=== PATIENT | female | born 1955 | race Caucasian/White ===

== ENCOUNTER 2016-08-10 11:44 | Inpatient (IN) | payer OTHER ==
--- NOTE | ~2016-08-10 | DS ---
Discharge Summary [facility] [address] [place]. [address] NAME: JUAN DUMONT : 53 STATUS : DIS IN PAT#: [id number] AGE: 61 ADM/REG DATE : 08/10/16 MR#: [id number] REPORT SERV DATE: 08/12/16 DICTATED BY: VARSHA DIOP DATE: 08/12/16 REPORT STATUS : Draft TRANSCRIBED BY: MODL DATE: 08/12/16 ADMISSION DATE: 08/10/2016 DISCHARGE DATE: 08/12/2016 DISCHARGE DIAGNOSES: 1. Acute on chronic diastolic dysfunction. 2. Acute hypoxic respiratory failure, improved back to room air with adequate oxygenation status. 3. Atrial fibrillation. 4. Diabetes mellitus. 5. History of recent pneumonia back in 05/2016. No evidence of pneumonia at this point. HISTORY OF PRESENT ILLNESS: This is an obese 61-year-old female patient, who had a recent hospitalization with pneumonia, who came to the hospital with shortness of breath. Please see dictated H and P. HOSPITAL COURSE: She was admitted to the hospital with heart failure. Had evaluation with echocardiogram which showed probably a normal left ventricular ejection fraction but showed indeterminate diastolic dysfunction without significant valvular heart disease. More likely, she is suffering from diastolic dysfunction. She was treated with IV diuretics and had great improvement. Now, she is off the oxygen, she can ambulate without any problem, dyspnea, other symptoms, or hypoxia without the oxygen supplement. Therefore, the patient will be discharged to home, and we are going to increase her Lasix to 60 mg once a day from 40 mg. I explained to her probably she will need a sleep study as an outpatient and also she needs to stop smoking seriously. She voiced understanding about this recommendation and education on cessation. I explained to her to increase her furosemide to 60 mg once a day. She maximized inpatient benefit, stabilized, had significant improvement, and will be discharged to home. DISCHARGE MEDICATIONS: Coreg 3.125 mg twice a day, Dilantin 100 mg once in the morning time and at bedtime, Glucophage 500 mg once a day, Keppra 250 mg in the morning time and 500 mg at nighttime, Neurontin 100 mg three times a day, potassium 20 mg once a day, Pravachol 20 mg once at bedtime, Xarelto 20 mg once at bedtime, and again furosemide was increased to 60 mg once a day. DISPOSITION: The patient is discharged to home in stable condition and needs to follow up with primary care physician. EKL/MODL Varsha Forrest Discharge Summary [address] [place]. [address] NAME: JUAN DUMONT : 53 STATUS : DIS IN PAT#: [id number] AGE: 61 ADM/REG DATE : 08/10/16 MR#: [id number] REPORT SERV DATE: 08/12/16 DICTATED BY: VARSHA DIOP DATE: 08/12/16 REPORT STATUS : Draft TRANSCRIBED BY: MIGUEL DATE: 08/12/16 Alec Diop / [id number] CC: Alec Gutiérrez
--- NOTE | ~2016-08-10 | HP ---
History And Physical [address] [place]. [address] NAME: JUAN DUMONT : 53 STATUS : ADM IN PAT#: [id number] AGE: 61 ADM/REG DATE : 08/10/16 MR#: [id number] REPORT SERV DATE: 08/10/16 DICTATED BY: VARSHA DIOP DATE: 08/10/16 REPORT STATUS : Draft TRANSCRIBED BY: MODL DATE: 08/10/16 DATE OF ADMISSION: 08/10/2016 CHIEF COMPLAINT: She complained of being dizzy and short of breath for two weeks. HISTORY OF PRESENT ILLNESS: This is a 61-year-old current smoker who was treated in the hospital with pneumonia 2 months ago, came back to the hospital today with two weeks of dizziness and short of breath. She said she was feeling very well when she was discharged back in May 2016 and she was doing well but about two weeks ago, she started feeling very labored breathing and whenever she moves around, she felt dizzy and it has been progressively worse that is why she tried to come to the hospital today. She missed appointment with a psychiatric arnp for the hospital followup because her car was in the shop for repair, so she made another appointment coming next month. She has no fever, no chills. She has some cough but whitish sputum coming out. There is no hemoptysis. No dysuria. No bleedings anywhere. She did not have any chest pain, but she felt some left arm discomfort about two weeks. She has no history of heart failure. She is not sure about her sleep apnea diagnosis. There was no syncopal episode. No palpitation. REVIEW OF SYSTEMS: All systems are reviewed and negative. PAST MEDICAL HISTORY: 1. Atrial fibrillation. 2. Diabetes. 3. Chronic obstructive pulmonary disease. 4. History of pneumonia back in May 2016. 5. Seizure disorder. 6. Tobacco abuse. PAST SURGICAL HISTORY: 1. Cholecystectomy. 2. Left hip surgery. ALLERGIES: NO KNOWN DRUG ALLERGIES. SOCIAL HISTORY: She lives with family and has children. She smokes cigarettes but she cut down to 1 cigarette per week last week. History And Physical [address] [address] NAME: JUAN DUMONT : 53 STATUS : ADM IN PAT#: [id number] AGE: 61 ADM/REG DATE : 08/10/16 MR#: [id number] REPORT SERV DATE: 08/10/16 DICTATED BY: VARSHA DIOP DATE: 08/10/16 REPORT STATUS : Draft TRANSCRIBED BY: MIGUEL DATE: 08/10/16 MEDICATIONS AT HOME: 1. Albuterol as needed. 2. Coreg 3.125 mg twice a day. 3. Lasix 40 mg once a day. 4. Neurontin 100 mg three times a day. 5. Keppra 750 mg once a day and 1500 mg once at nighttime. 6. Metformin 500 mg once a day. 7. Dilantin 200 mg once a day and 100 mg at night. 8. Potassium chloride 20 mEq once a day. 9. Pravachol 20 mg once a day. 10.Xarelto 20 mg once at night. 11.Aptiom 200 mg once at bedtime, that is her new seizure medication. FAMILY HISTORY: Father of bladder cancer. PHYSICAL EXAMINATION: VITAL SIGNS: Blood pressure 118/38, pulse was 103, temperature is 98.7, respirations 23, and saturation was 86% on room air. GENERAL APPEARANCE: She is alert and awake. She is sitting up on the stretcher cot in the hospital bed here and has a mild respiratory distress. HEENT: Pupils are equal and round and reactive to light. EOMs intact. Conjunctivae not anemic. Has a mustache. NECK: No carotid bruits audible. CHEST: Has both base crackles and scattered wheezing on both chest area, especially the crackles are more audible on both the bases. CARDIOVASCULAR: The heart sound is very hard to hear because of the breathing sound. It is irregular. ABDOMEN: Bowel sounds present. Soft. EXTREMITIES: There is no pedal edema. The patient's body habitus is obese. LABORATORY DATA: Showed sodium 132, potassium 3.5, BUN 9, creatinine 0.44, glucose 92, WBC was 6.8, hemoglobin 13.0, hematocrit 40.0, and platelets is 157. ABG showed pH 7.4, pCO2 was 43, and PaO2 of 55. X-ray showed bilateral pulmonary congestion. ASSESSMENT AND PLAN: 1. Acute hypoxic respiratory failure. Etiology is many possibility currently at this point, I doubt infectious etiology. 2. Chronic atrial fibrillation with rate control. 3. Chronic Xarelto use. 4. Chronic obstructive pulmonary disease exacerbation. 5. Seizure disorder. 6. Current tobacco abuse. The patient will be admitted to the hospital on telemetry bed. We will start IV diuretics History And Physical [address] [address] NAME: JUAN DUMONT : 53 STATUS : ADM IN PAT#: [id number] AGE: 61 ADM/REG DATE : 08/10/16 MR#: [id number] REPORT SERV DATE: 08/10/16 DICTATED BY: VARSHA DIOP DATE: 08/10/16 REPORT STATUS : Draft TRANSCRIBED BY: MODL DATE: 08/10/16 and we will obtain the echocardiogram. Maximizing bronchodilator with inhaled steroid use. We will also check the Dilantin level and also oxygen supplement. The patient's current plan of care was discussed with the patient and she voiced understanding. EKL/MODL Varsha Diop M.D. / [id number] CC: CLEMENTINA MCCOLLUM
[2016-08-10 11:44] LABS: BASOPHILS 0.4 %; BASOPHILS ABSOLUTE 0.03 10/3/uL (0.0-0.16); EOSINOPHILS 0 %; ER CBC TAT 0 Hrs 08 Mins; IMMATURE GRANULOCYTES 0.1 %; IMMATURE GRANULOCYTES ABSOLUTE 0.01 10/3/uL (0.0-0.11); LYMPHOCYTES 28.9 %; LYMPHOCYTES ABSOLUTE 1.97 10/3/uL (0.67-4.30); MANUAL DIFF NO %; MEAN CORPUS HGB CONC 32.5 g/dL (32.0-36.0); MEAN CORPUSCULAR HEMOGLOB 28.3 pg (26.0-34.0); MEAN CORPUSCULAR VOLUME 87.1 fL (80-100); MEAN PLATELET VOLUME 12.1 fL (9.2-13.0); MONOCYTES 12.2 %; MONOCYTES ABSOLUTE 0.83 10/3/uL (0.21-1.20); NEUTROPHILS 58.4 %; NEUTROPHILS ABSOLUTE 3.98 10/3/uL (2.02-8.40); PLATELET COUNT 157 10/3/uL (150-400); RBC DISTRIBUTION WIDTH 13.9 % (12.0-16.0); RED CELL COUNT 4.59 10/6/uL (4.0-5.6); WHITE BLOOD CELLS 6.8 10/3/uL (4.5-10.5)
[~2016-08-10 11:44] MED LIST: ALBUTEROL5 INH; APTIOM; APTIOM PO; AUG875 PO; COREG3 PO; D100 PO; FORTAMET500 MG PO; KEPPRA750 MG PO; KLOR-CON M2020 MEQ PO; L40 PO; NEUR100 PO; PRAVAC PO; XARELTO20 MG PO
[2016-08-10 11:59] LABS: BUN (BLOOD UREA NITROGEN) 9 MG/DL (6-23); CALCIUM, SERUM 8.3 MG/DL (8.5-10.4); CHLORIDE, SERUM 92 MMOL/L (96-112); CO2 (CARBON DIOXIDE) 27 MMOL/L (24-34); CREATININE 0.44 MG/DL (0.55-1.02); GFR AFRICAN AMERICAN 125 ML/MIN (>=60); GFR NON AFRICAN AMERICAN 108 ML/MIN (>=60); POTASSIUM, SERUM 3.5 MMOL/L (3.5-5.3); SGOT(AST) 25 U/L (5-40); SGPT(ALT) 22 U/L (5-65); TOTAL BILIRUBIN 0.5 MG/DL (0-1.2); TOTAL PROTEIN 7.4 G/DL (6.0-8.5)
[2016-08-10 12:00] LABS: A/G RATIO 0.8 (0.7-1.9); ALBUMIN 3.2 G/DL (3.5-5.0); ALKALINE PHOSPHATASE 146 U/L (45-117); GLOBULIN 4.2 G/DL (2.5-4.1); GLUCOSE, SERUM 92 MG/DL (60-99); SODIUM, SERUM 132 MMOL/L (135-148)
[2016-08-10] MEDS ORDERED: KEPPRA750 MG PO (12:53)
[2016-08-10] MEDS ORDERED: D100 PO (12:54)
[2016-08-10] MEDS ORDERED: PROVHFA INH (12:55)
[2016-08-10 13:09] LABS: ALLENS TEST Pos; CARBOXYHEMOGLOBIN 1.4 % (0-3); HCO3 (ACTUAL BICARBONATE) 26.1 MEQ/L (23-27); HEMOBLOGIN CONTENT 13.3 G/DL (12-16); INSTRUMENT SERIAL # 8087; METHEMOGLOBIN 0.4 % (0-3); O2 CONTENT 16.1 VOL% (18-24); PCO2 (CO2 TENSION) 43 MMHG (35-45); PO2 (O2 TENSION) 55 MMHG (79-93); SAMPLE Arterial
[2016-08-10 18:27] LABS: DILANTIN (PHENYTOIN) 3.4 MCG/ML (10.0-20.0); TROPONIN I <0.02 NG/ML (<0.05)
[2016-08-10 20:00] LABS: PROCALCITONIN <0.05 ng/mL (<0.5)
[2016-08-11 06:48] LABS: BUN (BLOOD UREA NITROGEN) 10 MG/DL (6-23); CALCIUM, SERUM 8.5 MG/DL (8.5-10.4); CHLORIDE, SERUM 99 MMOL/L (96-112); CO2 (CARBON DIOXIDE) 31 MMOL/L (24-34); CREATININE 0.61 MG/DL (0.55-1.02); GFR AFRICAN AMERICAN 113 ML/MIN (>=60); GFR NON AFRICAN AMERICAN 97 ML/MIN (>=60); POTASSIUM, SERUM 3.1 MMOL/L (3.5-5.3)
[2016-08-11 06:50] LABS: GLUCOSE, SERUM 231 MG/DL (60-99); SODIUM, SERUM 141 MMOL/L (135-148)
[2016-08-11 06:54] LABS: BASOPHILS 1.4 %; BASOPHILS ABSOLUTE 0.07 10/3/uL (0.0-0.16); EOSINOPHILS 0 %; HEMATOCRIT 40.2 % (36.0-48.0); HEMOGLOBIN 13.1 g/dL (12.0-16.0); IMMATURE GRANULOCYTES 0.2 %; IMMATURE GRANULOCYTES ABSOLUTE 0.01 10/3/uL (0.0-0.11); LYMPHOCYTES 36.8 %; LYMPHOCYTES ABSOLUTE 1.82 10/3/uL (0.67-4.30); MEAN CORPUS HGB CONC 32.6 g/dL (32.0-36.0); MEAN CORPUSCULAR VOLUME 89.1 fL (80-100); MEAN PLATELET VOLUME 11.4 fL (9.2-13.0); MONOCYTES 12.8 %; MONOCYTES ABSOLUTE 0.63 10/3/uL (0.21-1.20); NEUTROPHILS 48.8 %; NEUTROPHILS ABSOLUTE 2.41 10/3/uL (2.02-8.40); PLATELET COUNT 147 10/3/uL (150-400); RBC DISTRIBUTION WIDTH 13.7 % (12.0-16.0); RED CELL COUNT 4.51 10/6/uL (4.0-5.6); WHITE BLOOD CELLS 4.9 10/3/uL (4.5-10.5)
[2016-08-11 07:00] LABS: MANUAL DIFF NO %
[2016-08-12 04:53] LABS: CALCIUM, SERUM 8.7 MG/DL (8.5-10.4); CHLORIDE, SERUM 102 MMOL/L (96-112); CO2 (CARBON DIOXIDE) 33 MMOL/L (24-34); GFR AFRICAN AMERICAN 129 ML/MIN (>=60); GFR NON AFRICAN AMERICAN 112 ML/MIN (>=60); SODIUM, SERUM 142 MMOL/L (135-148)
[2016-08-12 04:54] LABS: BUN (BLOOD UREA NITROGEN) 15 MG/DL (6-23); GLUCOSE, SERUM 96 MG/DL (60-99); POTASSIUM, SERUM 3.9 MMOL/L (3.5-5.3)
== END 2016-08-12 19:23 | disposition home or self-care (01) | DRG 291 ==
LOC: ER 11:44 → 7NO 15:25
PROVIDERS: Emergency Medicine; Internal Medicine
DX: I50.33 Acute on chronic diastolic (congestive) heart failure (principal); J96.01 Acute respiratory failure with hypoxia; I48.2 Chronic atrial fibrillation; J44.9 Chronic obstructive pulmonary disease, unspecified; E11.9 Type 2 diabetes mellitus without complications; G40.909 Epilepsy, unspecified, not intractable, without status epilepticus; Z87.01 Personal history of pneumonia (recurrent); F17.210 Nicotine dependence, cigarettes, uncomplicated; Z90.49 Acquired absence of other specified parts of digestive tract; Z98.890 Other specified postprocedural states; Z79.899 Other long term (current) drug therapy; Z85.51 Personal history of malignant neoplasm of bladder; Z79.01 Long term (current) use of anticoagulants
CPT/HCPCS: 36600; 71010; 71020; 80048; 80053; 80185; 82805; 82962; 83880; 84145; 84484; 85025; 87040; 87070; 87205; 93005; 93306; 94640; 96374; 96375; 99291; A9270-GY; J2930

== ENCOUNTER 2016-10-19 11:24 | Inpatient (IN) | payer OTHER ==
--- NOTE | ~2016-10-19 | DS ---
Discharge Summary [place] [address] [facility] [place]. [address] NAME: JUAN DUMONT : 53 STATUS : ADM IN PAT#: [id number] AGE: 61 ADM/REG DATE : 10/19/16 MR#: [id number] REPORT SERV DATE: 10/23/16 DICTATED BY: MAVIS OSCAR DATE: 10/23/16 REPORT STATUS : Draft TRANSCRIBED BY: MODL DATE: 10/23/16 ADMISSION DATE: 10/19/2016 DISCHARGE DATE: ADDENDUM: The patient's O2 saturation at rest 91% and with walking on room air, the patient's O2 saturation was 87%, so she will go home with supplemental oxygen 2 L nasal cannula. DICTATED BY: Alec Hickman/MIGUEL Mavis Oscar M.D. / [id number] CC: Alec Hickman
--- NOTE | ~2016-10-19 | DS ---
Discharge Summary [facility] [address] [place]. [address] NAME: JUAN DUMONT : 53 STATUS : DIS IN PAT#: [id number] AGE: 61 ADM/REG DATE : 10/19/16 MR#: [id number] REPORT SERV DATE: 10/23/16 DICTATED BY: MAVIS OSCAR DATE: 10/23/16 REPORT STATUS : Draft TRANSCRIBED BY: MODL DATE: 10/23/16 ADMISSION DATE: 10/19/2016 DISCHARGE DATE: 10/23/2016 DISCHARGE DIAGNOSES: 1. Right upper lobe community-acquired pneumonia. 2. Chronic obstructive pulmonary disease exacerbation in an active smoker. 3. Atrial fibrillation with rapid ventricular response. 4. History of chronic diastolic congestive heart failure. 5. Seizure disorder. 6. Diabetes mellitus type 2 with A1c of 5.6%. 7. Hyponatremia, mild and improved. HISTORY: The patient presented to the emergency room at [facility] with complaints of fever, chills, some cough. She was found to have a right upper lobe infiltrate and was referred to our team for inpatient care. Chest x-ray in the emergency room revealed right upper lobe infiltrate. Procalcitonin was elevated at 1.86. Her white count was elevated at 17.7. She was admitted to the hospital. Blood cultures x2 with no growth. Sputum grew out normal kelin. She had a urine culture with greater than 100,000 mixed gram positive cocci and diphtheroid. She had some diarrhea on 10/19/2016 that grew out normal kelin. No shiga toxin, 0 to 5 white cells, negative C. diff. The patient's diarrhea significantly improved. Treatment in the hospital included Rocephin 2 g every 24 hours plus azithromycin and bronchodilator protocol. She had the Cardizem protocol in place for rapid ventricular response. Her rapid ventricular response has improved. She had a recent echocardiogram on 08/11/2016 showing left atrial enlargement of 5 cm, left ventricular ejection fraction of 55%, indeterminate left ventricular diastolic function, mildly calcified aortic valve without significant aortic valve stenosis. Otherwise, unremarkable findings. She is ambulatory. She is feeling dramatically better. Her appetite is good. She has no chest pain. Her TSH in May of this year was normal at 0.574. DISCHARGE MEDICATIONS: Will include Wellbutrin SR 150 mg daily, Coreg 3.125 mg b.i.d., Ceftin 500 mg b.i.d. for two more days, gabapentin 100 mg at bedtime and 200 mg in the morning, Keppra 750 mg in the morning and 1500 mg at bedtime, lisinopril 2.5 mg b.i.d., phenytoin 100 mg twice a day (she states her neurologist is slowly weaning her off), Pravachol 20 mg at bedtime, Xarelto 20 mg at supper, metformin 500 mg daily, Tylenol 650 q.6 hours p.r.n. pain or fever, albuterol HFA two puffs q.4 hours p.r.n. shortness of breath, Advair Diskus 250/50 a puff twice a day, Lasix 40 mg in the morning and 20 in the evening, KCl 20 mEq daily, Aptiom 200 mg daily, Centrum multivitamin once a day I spent 41 minutes today with the patient and with the nurse and with discharge planning. Discharge Summary [address] [address] NAME: JUAN DUMONT : 53 STATUS : DIS IN PAT#: [id number] AGE: 61 ADM/REG DATE : 10/19/16 MR#: [id number] REPORT SERV DATE: 10/23/16 DICTATED BY: MAVIS OSCAR DATE: 10/23/16 REPORT STATUS : Draft TRANSCRIBED BY: MIGUEL DATE: 10/23/16 DICTATED BY: Mavis Oscar M.D. RSG/MIGUEL Mavis Oscar M.D. / [id number] CC: Alec Hickman III, M.D.
--- NOTE | ~2016-10-19 | HP ---
History And Physical [place] [address] [place]. [address] NAME: JUAN DUMONT : 53 STATUS : ADM IN [facility]#: [id number] AGE: 61 ADM/REG DATE : 10/19/16 MR#: [id number] REPORT SERV DATE: 10/19/16 DICTATED BY: MAVIS LIN DATE: 10/19/16 REPORT STATUS : Draft TRANSCRIBED BY: MODL DATE: 10/19/16 DATE OF ADMISSION: 10/19/2016 HISTORY OF PRESENT ILLNESS: This is a 61-year-old female, who comes in for shortness of breath. The patient is a 61-year-old female, who has a history of COPD, not on home O2, diastolic congestive heart failure, atrial fibrillation, seizure disorder, yet continues to smoke two packs per day. The patient started having symptoms Sunday night when she woke up, feeling chills, undocumented fever, some sweats, and generalized aches and pains. The next day, she started having some diarrhea several times at night, but not during the day. She also has this chronic cough productive of yellowish phlegm, so she did not think that requires any change. The patient continued having this, it got worse. Finally today, she started having some vomiting, she could not take her medications, decided to come to the emergency room. She did admit of having some right chest pains increased on coughing. The patient then got an x-ray which shows the right upper lung pneumonia and we are now called to admit this patient. She denies any change in mental status, loss of consciousness, confusion. No rashes. She has generalized aches and pains, not particularly any kind of a joint pain. She denies any urinary symptoms. No hematochezia, hematemesis, hemoptysis. REVIEW OF SYSTEMS: The rest of the 14-point review of system is negative except as above. PAST MEDICAL HISTORY: Includes atrial fibrillation, diabetes, COPD, history of pneumonia, seizure disorder, cholecystectomy, left hip surgery. ALLERGIES: SHE HAS NO KNOWN DRUG ALLERGIES. MEDICATIONS: Include albuterol, Wellbutrin, Coreg, Advair, furosemide, Neurontin, Keppra, lisinopril, metformin, multivitamin, Dilantin, potassium, Pravachol, Xarelto, Aptiom. FAMILY HISTORY: Father of bladder cancer. SOCIAL HISTORY: The patient smokes two packs a day for several years. Lives with her family. No alcohol or recreational drug use. PHYSICAL EXAMINATION: GENERAL: The patient is alert and oriented x3, in mild cardiorespiratory distress. VITAL SIGNS: Include a temperature of 101.5, blood pressure of 101/55, pulse rate of 115, saturations 91% on room air, respiration of 28. NECK: She has supple neck. No JVD or carotid bruits. No lymphadenopathy. [place] conjunctivae. Anicteric sclerae. No pharyngeal erythema. LUNGS: She has wheezes bilaterally. Rhonchi and egophony on the right upper lung area. HEART: There is irregular rate and rhythm. Tachycardic. No murmurs appreciated. Positive bowel sounds. Soft, nontender. No masses. Fair pulses. No edema. NEURO: Nonlocalizing. LABORATORY DATA: Reveals a sodium of 128, potassium of 3.4, glucose of 120, AST of 41, History And Physical [address] [address] NAME: JUAN DUMONT : 53 STATUS : ADM IN [facility]#: [id number] AGE: 61 ADM/REG DATE : 10/19/16 MR#: [id number] REPORT SERV DATE: 10/19/16 DICTATED BY: MAVIS LIN DATE: 10/19/16 REPORT STATUS : Draft TRANSCRIBED BY: MODSarah DATE: 10/19/16 alkaline phosphatase of 183, total bilirubin of 1.5. White count of 17.7. The rest of the blood work are within acceptable limits. Flu test is negative. Urinalysis is pending. EKG shows an atrial fibrillation with rapid ventricular response at 103, normal axis. There is an incomplete right bundle branch block. ASSESSMENT: 1. Sepsis. 2. Right pneumonia. 3. Chronic obstructive pulmonary disease exacerbation. 4. Rapid atrial fibrillation. 5. Diabetes. 6. Tobacco abuse. 7. History of seizure disorder. 8. Hypokalemia. 9. Hyponatremia. PLAN: The patient will be admitted and placed on sepsis protocol. Continue the antibiotics that was started in the emergency room while we check the cultures. Placed on oxygen and bronchodilators. However, I will hold off steroids for now. Continue the beta filomena and placed on Cardizem drip if needed to control her rapid atrial fibrillation. Continue the anticoagulation. Continue diabetic and seizure medications. Correct the electrolytes. I will hold the diuretics for now. I have counseled her on stopping smoking and we will place her on a nicotine patch. This has been explained to the patient and she agreed and understood the plan. RENETTA/MIGUEL Mavis Lin M.D. / [id number] CC: Alec Edwards WILLIAM ANDREW
[~2016-10-19 11:24] MED LIST changes: +PROVHFA INH
[2016-10-19 13:13] LABS: BASOPHILS 0.1 %; BASOPHILS ABSOLUTE 0.02 10/3/uL (0.0-0.16); EOSINOPHILS 0 %; IMMATURE GRANULOCYTES 0.4 %; IMMATURE GRANULOCYTES ABSOLUTE 0.07 10/3/uL (0.0-0.11); LYMPHOCYTES 5.2 %; LYMPHOCYTES ABSOLUTE 0.93 10/3/uL (0.67-4.30); MEAN CORPUS HGB CONC 34.1 g/dL (32.0-36.0); MEAN CORPUSCULAR HEMOGLOB 29.3 pg (26.0-34.0); MEAN PLATELET VOLUME 11.8 fL (9.2-13.0); MONOCYTES 7.1 %; MONOCYTES ABSOLUTE 1.26 10/3/uL (0.21-1.20); NEUTROPHILS 87.2 %; NEUTROPHILS ABSOLUTE 15.46 10/3/uL (2.02-8.40); RBC DISTRIBUTION WIDTH 13.4 % (12.0-16.0); RED CELL COUNT 4.09 10/6/uL (4.0-5.6)
[2016-10-19 13:17] LABS: ER CBC TAT 0 Hrs 12 Mins; HEMATOCRIT 35.2 % (36.0-48.0); MANUAL DIFF NO %; MEAN CORPUSCULAR VOLUME 86.1 fL (80-100); PLATELET COUNT 195 10/3/uL (150-400); WHITE BLOOD CELLS 17.7 10/3/uL (4.5-10.5)
[2016-10-19 13:23] LABS: INTERNATIONAL NORMAL RATI 1.5 UNITS (-)
[2016-10-19 13:24] LABS: PARTIAL THROMBO TIME 37.7 SEC (22.5-37.2)
[2016-10-19 13:28] LABS: LACTATE 1.4 MMOL/L (0.3-2.4)
[2016-10-19 13:30] LABS: CALCIUM, SERUM 8.8 MG/DL (8.5-10.4); CHLORIDE, SERUM 93 MMOL/L (96-112); CREATININE 0.53 MG/DL (0.55-1.02); GFR AFRICAN AMERICAN 118 ML/MIN (>=60); GFR NON AFRICAN AMERICAN 102 ML/MIN (>=60); POTASSIUM, SERUM 3.4 MMOL/L (3.5-5.3); SGOT(AST) 41 U/L (5-40); SGPT(ALT) 29 U/L (5-65)
[2016-10-19 13:32] LABS: A/G RATIO 0.6 (0.7-1.9); ALBUMIN 2.5 G/DL (3.5-5.0); ALKALINE PHOSPHATASE 183 U/L (45-117); BUN (BLOOD UREA NITROGEN) 8 MG/DL (6-23); CO2 (CARBON DIOXIDE) 28 MMOL/L (24-34); GLOBULIN 4.5 G/DL (2.5-4.1); GLUCOSE, SERUM 120 MG/DL (60-99); SODIUM, SERUM 128 MMOL/L (135-148); TOTAL BILIRUBIN 1.5 MG/DL (0-1.2)
[2016-10-19 13:55] LABS: PROCALCITONIN 1.86 ng/mL (<0.5)
[2016-10-19 14:31] LABS: INFLUENZA A SCREEN NEGATIVE (NEGATIVE); INFLUENZA B SCREEN NEGATIVE (NEGATIVE)
[2016-10-19] MEDS ORDERED: ADVAIR250 INH (14:44)
[2016-10-19] MEDS ORDERED: COREG3 PO (14:45)
[2016-10-19] MEDS ORDERED: WELLSR150 PO (14:45)
[2016-10-19] MEDS ORDERED: L20 PO (14:46)
[2016-10-19] MEDS ORDERED: L40 PO (14:47)
[2016-10-19] MEDS ORDERED: KLOR-CON M2020 MEQ PO (14:47)
[2016-10-19] MEDS ORDERED: PRIN2.5 PO (14:48)
[2016-10-19] MEDS ORDERED: FORTAMET500 MG PO (14:50)
[2016-10-19] MEDS ORDERED: D100 PO (14:52)
[2016-10-19] MEDS ORDERED: PRAVAC PO (14:53)
[2016-10-19] MEDS ORDERED: PROVHFA INH (15:14)
[2016-10-19] MEDS ORDERED: XARELTO20 MG PO (15:15)
[2016-10-19] MEDS ORDERED: KEPPRA750 MG PO ×2 (15:16)
[2016-10-19] MEDS ORDERED: APTIOM PO (15:18)
[2016-10-19] MEDS ORDERED: NEUR100 PO ×2 (15:18→15:19)
[2016-10-19] MEDS ORDERED: CENTRUM PO (15:28)
[2016-10-19 20:44] LABS: ASCORBIC ACID (UR NOT ORDER) 40 (NEG); BILIRUBIN, URINE NEGATIVE (NEG); ER URINALYSIS TAT 0 Hrs 22 Mins; KETONE, URINE 20 MG/DL (NEG); LEUKOCYTE ESTERASE(NOT OR SMALL (NEG); NITRITE (URINE) NEG (NEG); WBC (NOT ORDERED) (RFLEX) 6 (0-5)
[2016-10-20 06:50] LABS: BASOPHILS 0.1 %; BASOPHILS ABSOLUTE 0.02 10/3/uL (0.0-0.16); EOSINOPHILS 0.1 %; EOSINOPHILS ABSOLUTE 0.01 10/3/uL (0.0-0.53); HEMATOCRIT 35.8 % (36.0-48.0); IMMATURE GRANULOCYTES 0.4 %; IMMATURE GRANULOCYTES ABSOLUTE 0.06 10/3/uL (0.0-0.11); LYMPHOCYTES 7.4 %; LYMPHOCYTES ABSOLUTE 1.07 10/3/uL (0.67-4.30); MEAN CORPUS HGB CONC 33.5 g/dL (32.0-36.0); MEAN CORPUSCULAR HEMOGLOB 29.3 pg (26.0-34.0); MEAN CORPUSCULAR VOLUME 87.3 fL (80-100); MEAN PLATELET VOLUME 11.5 fL (9.2-13.0); MONOCYTES 9.1 %; MONOCYTES ABSOLUTE 1.32 10/3/uL (0.21-1.20); NEUTROPHILS 82.9 %; NEUTROPHILS ABSOLUTE 12.07 10/3/uL (2.02-8.40); PLATELET COUNT 170 10/3/uL (150-400); RBC DISTRIBUTION WIDTH 13.6 % (12.0-16.0); WHITE BLOOD CELLS 14.6 10/3/uL (4.5-10.5)
[2016-10-20 06:51] LABS: MANUAL DIFF NO %
[2016-10-20 07:02] LABS: BUN (BLOOD UREA NITROGEN) 11 MG/DL (6-23); CALCIUM, SERUM 8.3 MG/DL (8.5-10.4); CHLORIDE, SERUM 94 MMOL/L (96-112); CO2 (CARBON DIOXIDE) 25 MMOL/L (24-34); CREATININE 0.38 MG/DL (0.55-1.02); GFR AFRICAN AMERICAN 132 ML/MIN (>=60); GFR NON AFRICAN AMERICAN 114 ML/MIN (>=60); GLUCOSE, SERUM 94 MG/DL (60-99); POTASSIUM, SERUM 3.4 MMOL/L (3.5-5.3); SODIUM, SERUM 129 MMOL/L (135-148)
[2016-10-21 05:41] LABS: BASOPHILS 0.1 %; BASOPHILS ABSOLUTE 0.01 10/3/uL (0.0-0.16); EOSINOPHILS 0.3 %; EOSINOPHILS ABSOLUTE 0.03 10/3/uL (0.0-0.53); HEMOGLOBIN 10.5 g/dL (12.0-16.0); IMMATURE GRANULOCYTES 0.5 %; IMMATURE GRANULOCYTES ABSOLUTE 0.06 10/3/uL (0.0-0.11); LYMPHOCYTES 10.1 %; LYMPHOCYTES ABSOLUTE 1.11 10/3/uL (0.67-4.30); MEAN CORPUS HGB CONC 33.3 g/dL (32.0-36.0); MEAN CORPUSCULAR HEMOGLOB 28.8 pg (26.0-34.0); MEAN CORPUSCULAR VOLUME 86.5 fL (80-100); MEAN PLATELET VOLUME 11.1 fL (9.2-13.0); MONOCYTES 7.8 %; MONOCYTES ABSOLUTE 0.86 10/3/uL (0.21-1.20); NEUTROPHILS 81.2 %; NEUTROPHILS ABSOLUTE 8.97 10/3/uL (2.02-8.40); PLATELET COUNT 159 10/3/uL (150-400); RBC DISTRIBUTION WIDTH 13.5 % (12.0-16.0); RED CELL COUNT 3.64 10/6/uL (4.0-5.6)
[2016-10-21 05:44] LABS: HEMATOCRIT 31.5 % (36.0-48.0); MANUAL DIFF NO %
[2016-10-21 05:55] LABS: BUN (BLOOD UREA NITROGEN) 13 MG/DL (6-23); CALCIUM, SERUM 8.2 MG/DL (8.5-10.4); CHLORIDE, SERUM 94 MMOL/L (96-112); CO2 (CARBON DIOXIDE) 27 MMOL/L (24-34); CREATININE 0.33 MG/DL (0.55-1.02); GFR AFRICAN AMERICAN 138 ML/MIN (>=60); GFR NON AFRICAN AMERICAN 119 ML/MIN (>=60); GLUCOSE, SERUM 99 MG/DL (60-99); POTASSIUM, SERUM 3.7 MMOL/L (3.5-5.3); SODIUM, SERUM 126 MMOL/L (135-148)
[2016-10-22 08:52] LABS: BASOPHILS 0.2 %; BASOPHILS ABSOLUTE 0.02 10/3/uL (0.0-0.16); EOSINOPHILS 1.4 %; EOSINOPHILS ABSOLUTE 0.14 10/3/uL (0.0-0.53); HEMATOCRIT 31.6 % (36.0-48.0); HEMOGLOBIN 10.3 g/dL (12.0-16.0); IMMATURE GRANULOCYTES 0.9 %; IMMATURE GRANULOCYTES ABSOLUTE 0.09 10/3/uL (0.0-0.11); LYMPHOCYTES 11.7 %; LYMPHOCYTES ABSOLUTE 1.18 10/3/uL (0.67-4.30); MEAN CORPUS HGB CONC 32.6 g/dL (32.0-36.0); MEAN PLATELET VOLUME 11.7 fL (9.2-13.0); MONOCYTES ABSOLUTE 1.11 10/3/uL (0.21-1.20); NEUTROPHILS 74.8 %; NEUTROPHILS ABSOLUTE 7.55 10/3/uL (2.02-8.40); PLATELET COUNT 163 10/3/uL (150-400); RBC DISTRIBUTION WIDTH 13.7 % (12.0-16.0); RED CELL COUNT 3.55 10/6/uL (4.0-5.6); WHITE BLOOD CELLS 10.1 10/3/uL (4.5-10.5)
[2016-10-22 08:55] LABS: MANUAL DIFF NO %
[2016-10-22 09:04] LABS: BUN (BLOOD UREA NITROGEN) 9 MG/DL (6-23); CALCIUM, SERUM 8.7 MG/DL (8.5-10.4); CHLORIDE, SERUM 100 MMOL/L (96-112); CO2 (CARBON DIOXIDE) 29 MMOL/L (24-34); CREATININE 0.26 MG/DL (0.55-1.02); GFR AFRICAN AMERICAN 149 ML/MIN (>=60); GFR NON AFRICAN AMERICAN 129 ML/MIN (>=60); GLUCOSE, SERUM 95 MG/DL (60-99); POTASSIUM, SERUM 4.8 MMOL/L (3.5-5.3); SODIUM, SERUM 133 MMOL/L (135-148)
[2016-10-23 05:56] LABS: BUN (BLOOD UREA NITROGEN) 7 MG/DL (6-23); CALCIUM, SERUM 8.8 MG/DL (8.5-10.4); CHLORIDE, SERUM 102 MMOL/L (96-112); CO2 (CARBON DIOXIDE) 25 MMOL/L (24-34); CREATININE 0.29 MG/DL (0.55-1.02); GFR AFRICAN AMERICAN 144 ML/MIN (>=60); GFR NON AFRICAN AMERICAN 124 ML/MIN (>=60); GLUCOSE, SERUM 98 MG/DL (60-99); POTASSIUM, SERUM 4.3 MMOL/L (3.5-5.3); SODIUM, SERUM 134 MMOL/L (135-148)
[2016-10-23] MEDS ORDERED: CEFT5 PO (17:40)
[2016-10-23] MEDS ORDERED: HABIT21 TOP (17:57)
[2016-10-23] MEDS ORDERED: T PO (18:03)
== END 2016-10-23 18:45 | disposition home or self-care (01) | DRG 871 ==
LOC: ER 11:24 → 2SO 15:46
PROVIDERS: Emergency Medicine; Internal Medicine
DX: A41.9 Sepsis, unspecified organism (principal); J18.9 Pneumonia, unspecified organism; I50.32 Chronic diastolic (congestive) heart failure; J44.1 Chronic obstructive pulmonary disease with (acute) exacerbation; I48.91 Unspecified atrial fibrillation; G40.909 Epilepsy, unspecified, not intractable, without status epilepticus; E87.1 Hypo-osmolality and hyponatremia; F17.213 Nicotine dependence, cigarettes, with withdrawal; N39.0 Urinary tract infection, site not specified; E87.6 Hypokalemia; E11.9 Type 2 diabetes mellitus without complications; I45.10 Unspecified right bundle-branch block; Z98.890 Other specified postprocedural states; Z80.52 Family history of malignant neoplasm of bladder
CPT/HCPCS: 71010; 80048; 80053; 81001; 82962; 83036; 83605; 84145; 85025; 85610; 85730; 87040; 87045; 87046; 87046-59; 87070; 87086; 87205; 87449; 87493; 87493-59; 87804; 87899; 87899-59; 89055; 93005; 94640; 99285; A9270-GY; J0456